=== PATIENT | female | born 1960 | race American Indian/Alaskan Native ===

== ENCOUNTER 2017-04-23 06:34 | Emergency (ER) | payer OTHER ==
[2017-04-23 07:08] VITALS: BP 171/98
--- NOTE | 2017-04-23 07:37 | XRay Report ---
FINAL REPORT EXAM: XR HAND 2V LT HISTORY: pain/LT HAND TECHNIQUE: AP and lateral views of the left hand were obtained. FINDINGS: There are no skeletal or soft tissue abnormalities identified. IMPRESSION: Within normal limits.
--- NOTE | 2017-04-23 07:37 | XRay Report ---
FINAL REPORT EXAM: XR WRIST 2V LT HISTORY: pain/LT WRIST TECHNIQUE: AP and lateral views of the left wrist were obtained. FINDINGS: There is no evidence of fracture or soft tissue injury. The navicular bone appears intact. IMPRESSION: No gross abnormalities. If pain persists, a follow-up study is recommended 7-10 days to evaluate for occult fracture.
[2017-04-23] MEDS ORDERED: TYLENOL PO ONE (07:44)
--- NOTE | 2017-04-23 07:46 | Emergency Department Report ---
Upper Extremity - HPI Chief Complaint: Extremity Injury, Upper Stated Complaint: LT HAND SWELLING Time Seen by Provider: 04/23/17 07:37 Upper Extremity: Left Wrist Occurred When: >5 Days (1 month) Severity: moderate Symptoms: Yes Pain with Movement, Yes Numbness, No Deformity, No Limited Range of Movement, No Weakness, No Swelling, No Bruising/Ecchymosis, No Laceration or Abrasion Other History: 57-year-old female past medical history hypertension presents with intermittent plus one month of left wrist pain with some associated tingling radiating into first second and third digits. 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 States that pain is worse at the end of the day and worse with wrist flexion. Denies any direct trauma. Denies any other symptoms whatsoever. Patient is visibly ranging left hand and fingers and wrist but states it is slightly uncomfortable. Has been taking Motrin with minimal relief. ED Review of Systems ROS: Stated complaint: LT HAND SWELLING Other details as noted in HPI Constitutional: denies: chills, fever Eyes: denies: eye pain, eye discharge, vision change ENT: denies: ear pain, throat pain Respiratory: denies: cough, shortness of breath, wheezing Cardiovascular: denies: chest pain, palpitations Endocrine: no symptoms reported Gastrointestinal: denies: abdominal pain, nausea, diarrhea Genitourinary: denies: urgency, dysuria, discharge Musculoskeletal: as per HPI, arthralgia. denies: back pain, joint swelling Skin: denies: rash, lesions Neurological: denies: headache, weakness, paresthesias Psychiatric: denies: anxiety, depression Hematological/Lymphatic: denies: easy bleeding, easy bruising ED Past Medical Hx - Past Medical History Hx Hypertension: Yes - Surgical History Past Surgical History?: No - Social History Smoking Status: Never Smoker Substance Use Type: None - Medications Home Medications: Home Medications Medication Instructions Recorded Confirmed Last Taken Type Acetaminophen [Acetaminophen TAB] 500 mg PO Q6HR PRN #30 tablet 04/23/17 Unknown Rx Upper Extremity Exam - Exam General: Vital signs noted. No distress. Alert and acting appropriately. Head and Torso: No HEENT Abnormality, No Neck Tenderness, No Chest/Lungs Abnormality, No Abdominal Tenderness, No Back Tenderness Shoulder Exam: Yes Normal Range of Motion in Shoulder, No Shoulder Tenderness, No Clavicle Tenderness, No Shoulder Deformity, No AC Joint Tenderness Arm Exam: No Arm/Humerus Tenderness, No Arm Deformity Elbow: No Elbow Tenderness, No Normal Range of Motion in Elbow, No Elbow Deformity Forearm: No Forearm Tenderness, No Forearm Deformity, No Pain with Pronation, No Pain with Supination Wrist: Yes Wrist Tenderness, Yes Normal ROM in Wrist (wrist flexion and extension fully intact), No Wrist Deformity, No Snuffbox Tenderness, No Pain with Axial Thumb Compression Hand: Yes Normal ROM in Digit(s) (wrist flexion and extension intact. Positive Tinel and Phalen sign left hand wrist), No Hand Tenderness, No Hand Deformity, No Digit Tenderness, No Digit(s) Deformity, No Tendon Dysfunction CMS Exam: Yes Normal Distal Pulses (distal radial and ulnar pulses strong to palpation capillary refill less than 1 second), Yes Normal Capillary Refill, Yes Normal Distal Sensation, No Broken Skin ED Course Vital Signs 04/23/17 06:54 Temperature 98 F Pulse Rate 73 Respiratory 18 Rate Blood Pressure 171/98 O2 Sat by Pulse 100 Oximetry ED Medical Decision Making - Medical Decision Making A/P: Carpal tunnel left wrist 1-patient provided with wrist splint 2-Tylenol when necessary 3-follow-up up with orthopedics 4- left upper extremity neurovascularly intact on exam Critical care attestation.: If time is entered above; I have spent that time in minutes in the direct care of this critically ill patient, excluding procedure time. ED Disposition Clinical Impression: Carpal tunnel syndrome of left wrist Disposition: TO HOME OR SELFCARE Is pt being admited?: No Does the pt Need Aspirin: No Condition: Stable Instructions: Carpal Tunnel Syndrome (ED) Prescriptions: Acetaminophen [Acetaminophen TAB] 500 mg PO Q6HR PRN #30 tablet PRN Reason: Pain Referrals: LISA SALAS MD [Staff Physician] - 3-5 Days [facility] [Provider Group] - 3-5 Days Forms: Work/School Release Form(ED) Time of Disposition: 07:44
== END 2017-04-23 08:03 | disposition home or self-care (01) ==
LOC: ED 06:34
DX: G56.02 Carpal tunnel syndrome, left upper limb (principal); I10 Essential (primary) hypertension

== ENCOUNTER 2021-01-16 13:17 | Outpatient (CLI) | payer OTHER | END 2021-01-16 13:18 | disposition home or self-care (01) | LOC: MAMMO 13:17 | PROVIDERS: ATTEND Family Medicine | DX: Z12.31 Encounter for screening mammogram for malignant neoplasm of breast (principal) | CPT/HCPCS: 77067 ==